=== PATIENT | female | born 1995 | race Caucasian/White ===

== ENCOUNTER 2016-04-12 13:17 | Emergency (ER) | payer OTHER ==
[2016-04-12 14:02] VITALS: TEMP 98.7
--- NOTE | 2016-04-12 16:46 | ED ---
Chest Pain HPI - General Chief Complaint: Chest Pain Stated Complaint: Chest Pain Time Seen by Provider: 04/12/16 15:56 Source: patient, RN notes reviewed Mode of arrival: ambulatory - History of Present Illness Initial Comments: Patient is a 20-year-old female emergency room for evaluation of chest pain. Patient states she began having chest pain about 3 days ago. Patient states she went to her care provider 3 days ago and she received blood work, EKG and ordered a Holter monitor. Patient states blood work was normal. Patient states EKG was normal. Patient states that the Holter monitor will be done in about an hour. Patient states that she still continued to have chest pain. Patient states the pain is sharp. Patient states pain is worsened takes a deep breath. Patient denies any recent falls, trauma or heavy lifting. Patient states and taking Tylenol with no relief of symptoms. Patient denies shortness of breath. Patient denies nausea or vomiting. Patient denies headache or dizziness. - Related Data Home Medications Medication Instructions Recorded Confirmed Acetaminophen Tab [Tylenol Tab] 500 - 1,000 mg PO Q6HR PRN 04/12/16 04/12/16 Norgestimate-Ethinyl Estradiol 1 tab PO HS 04/12/16 04/12/16 [Tri-Sprintec Tablet] Sertraline [Zoloft] 25 mg PO HS 04/12/16 04/12/16 Allergies Allergy/AdvReac Type Severity Reaction Status Date / Time No Known Allergies Allergy Verified 04/12/16 16:25 Review of Systems ROS Statement: Those systems with pertinent positive or pertinent negative responses have been documented in the HPI. ROS Other: All systems not noted in ROS Statement are negative. EKG Findings - EKG Comments: EKG Findings:: Normal sinus rhythm with sinus arrhythmia, ventricular rate 74 bpm, AZ interval 152 ms, QRS duration 84 ms, QT/QTc is 356/395 ms Past Medical History Additional Past Medical History / Comment(s): one kidney History of Any Multi-Drug Resistant Organisms: None Reported Past Surgical History: Tonsillectomy Additional Past Surgical History / Comment(s): kidney removed as an Past Psychological History: Depression Smoking Status: Never smoker Past Alcohol Use History: None Reported Past Drug Use History: None Reported General Exam - General Exam Comments Initial Comments: Sitting in exam room in no acute distress. General appearance: alert, in no apparent distress Head exam: Present: atraumatic, normocephalic, normal inspection Eye exam: Present: normal appearance ENT exam: Present: normal exam Neck exam: Present: normal inspection Respiratory exam: Present: normal lung sounds bilaterally. Absent: respiratory distress Cardiovascular Exam: Present: regular rate, normal rhythm, normal heart sounds Extremities exam: Present: normal inspection Back exam: Present: normal inspection Neurological exam: Present: alert, oriented X3, CN II-XII intact, normal gait Psychiatric exam: Present: normal affect, normal mood Skin exam: Present: warm, dry, intact, normal color. Absent: rash Course Vital Signs 04/12/16 04/12/16 13:59 18:07 Temperature 98.7 F Pulse Rate 84 78 Respiratory 18 16 Rate Blood Pressure 133/62 130/74 O2 Sat by Pulse 99 96 Oximetry [facility] Patient is a 20-year-old female presents emergency room for evaluation of chest pain. Patient is currently being evaluated by Holter monitor. EKG showed no acute findings. Chest x-ray showed no acute findings. Patient is alert he followed up with her primary care provider received blood work which showed no acute findings. Patient denies any worsening symptoms since she was seen by her primary care provider 3 days ago. No further workup is necessary at this time. Advised patient to follow-up with her primary care provider regarding Holter monitor results. Patient states she understands everything that was discussed with her. Return parameters discussed. Case discussed with Dr. Guzman. Disposition Clinical Impression: Pleuritic chest pain Disposition: HOME SELF-CARE Condition: Good Instructions: Pleurisy (ED) Additional Instructions: Take Tylenol or Motrin as needed for pain. Please follow up with primary care provider in 24-48 hours. If any new symptom arises, symptoms worsen or fever develops, return to ER as soon as possible. Referrals: Guerline Storm DO [Primary Care Provider] - 1-2 days Time of Disposition: 17:19
--- NOTE | 2016-04-12 17:03 | XR ---
EXAMINATION TYPE: XR chest 2V DATE OF EXAM: 04/12/2016 4:59 PM COMPARISON: None HISTORY: 20-year-old female with chest pain for 3 days TECHNIQUE: PA and lateral views FINDINGS: The cardiomediastinal silhouette, aorta, and pulmonary vasculature are within normal limits. Some str kenroy atelectasis at the right midlung. Otherwise, lungs and pleural spaces are clear. IMPRESSION: No acute cardiopulmonary process.
[2016-04-12] MEDS ORDERED: KETOROLAC 60 MG/2 ML VIAL IM STA (17:20)
[2016-04-12 18:09] VITALS: BP 130/74; PULSE 78; RESP 16
== END 2016-04-12 18:08 | disposition home or self-care (01) ==
LOC: EC 13:17
DX: R07.81 Pleurodynia (principal); Z79.899 Other long term (current) drug therapy; Z79.3 Long term (current) use of hormonal contraceptives; F32.9 Major depressive disorder, single episode, unspecified
CPT/HCPCS: 93005; 71020; 96372; 99285; J1885

== ENCOUNTER 2017-11-14 13:39 | Emergency (ER) | payer OTHER ==
[2017-11-14] MEDS ORDERED: KETOROLAC 30 MG/ML 1 ML VIAL IVP STA (13:50)
--- NOTE | 2017-11-14 13:52 | ED ---
General Adult HPI - General Chief complaint: Chest Pain Stated complaint: chest pain Time Seen by Provider: 11/14/17 13:40 Source: patient, RN notes reviewed Mode of arrival: ambulatory Limitations: no limitations - History of Present Illness Initial comments: This is a 22-year-old female presents emergency Department with a past history of being on control pills. Patient states she been having chest pain for a week and a half and is located in her upper left chest. Patient states when she breathes normally she does not feel it however when she takes a deep breath it hurts. Patient states she is also short of breath with this pain. Patient denies any recent fever chills or cough. Patient denies any swelling to her legs or calf tenderness. Patient denies any radiation of the pain. Patient denies any diaphoretic episodes. Patient denies any nausea. Patient denies any abdominal pain. Patient denies any lightheadedness dizziness or any near syncopal episode. - Related Data Home Medications Medication Instructions Recorded Confirmed Norgestimate-Ethinyl Estradiol 1 tab PO HS 04/12/16 11/14/17 [Tri-Sprintec Tablet] Sertraline [Zoloft] 25 mg PO HS 04/12/16 11/14/17 Allergies Allergy/AdvReac Type Severity Reaction Status Date / Time No Known Allergies Allergy Verified 11/14/17 13:53 Review of Systems ROS Statement: Those systems with pertinent positive or pertinent negative responses have been documented in the HPI. ROS Other: All systems not noted in ROS Statement are negative. Past Medical History Past Medical History: No Reported History Additional Past Medical History / Comment(s): one kidney History of Any Multi-Drug Resistant Organisms: None Reported Past Surgical History: Tonsillectomy Additional Past Surgical History / Comment(s): kidney removed as an Past Psychological History: Depression Smoking Status: Never smoker Past Alcohol Use History: None Reported Past Drug Use History: None Reported General Exam - General Exam Comments Initial Comments: GENERAL: Patient is well-developed and well-nourished. Patient is nontoxic and well- hydrated and is in no acute distress. ENT: Neck is soft and supple. No significant lymphadenopathy is noted. Oropharynx is clear. Moist mucous membranes. Neck has full range of motion without eliciting any pain. EYES: The sclera were anicteric and conjunctiva were pink and moist. Extraocular movements were intact and pupils were equal round and reactive to light. Eyelids were unremarkable. PULMONARY: Unlabored respirations. Good breath sounds bilaterally. No audible rales rhonchi or wheezing was noted. CARDIOVASCULAR: There is a regular rate and rhythm without any murmurs gallops or rubs. Patient does not appear to be reproducible ABDOMEN: Soft and nontender with normal bowel sounds. No palpable organomegaly was noted. There is no palpable pulsatile mass. SKIN: Skin is clear with no lesions or rashes and otherwise unremarkable. NEUROLOGIC: Patient is alert and oriented x3. Cranial nerves II through XII are grossly intact. Motor and sensory are also intact. Normal speech, volume and content. Symmetrical smile. MUSCULOSKELETAL: Normal extremities with adequate strength and full range of motion. No lower extremity swelling or edema. No calf tenderness. LYMPHATICS: No significant lymphadenopathy is noted PSYCHIATRIC: Normal psychiatric evaluation. Normal interpersonal interactions appears functionally intact in deals appropriately with others. No signs of depression. No signs of anxiety. Limitations: no limitations Course Vital Signs 11/14/17 13:41 Temperature 98.2 F Pulse Rate 93 Respiratory 18 Rate Blood Pressure 131/81 O2 Sat by Pulse 99 Oximetry Medical Decision Making - Medical Decision Making EKG shows normal sinus rhythm at 74 bpm DC interval 152 QRS is 84 QT interval 358 QTC is 397 patient's EKG shows no ST segment elevation or depression or T wave abnormalities are noted Chest x-ray shows no acute abnormality - Lab Data Result diagrams: 11/14/17 14:12 11/14/17 14:12 Lab Results 11/14/17 11/14/17 11/14/17 Range/Units 14:12 14:12 14:12 WBC 8.8 (3.8-10.6) k/uL RBC 4.65 (3.80-5.40) m/uL Hgb 13.3 (11.4-16.0) gm/dL Hct 41.8 (34.0-46.0) % MCV 89.9 (80.0-100.0) fL MCH 28.6 (25.0-35.0) pg MCHC 31.8 (31.0-37.0) g/dL RDW 12.7 (11.5-15.5) % Plt Count 350 (150-450) k/uL Neutrophils % 61 % Lymphocytes % 31 % Monocytes % 6 % Eosinophils % 1 % Basophils % 0 % Neutrophils # 5.3 (1.3-7.7) k/uL Lymphocytes # 2.7 (1.0-4.8) k/uL Monocytes # 0.5 (0-1.0) k/uL Eosinophils # 0.1 (0-0.7) k/uL Basophils # 0.0 (0-0.2) k/uL PT (9.0-12.0) sec INR (<1.2) APTT (22.0-30.0) sec D-Dimer (<0.60) mg/L FEU Sodium 139 (137-145) mmol/L Potassium 4.4 (3.5-5.1) mmol/L Chloride 107 (98-107) mmol/L Carbon Dioxide 22 (22-30) mmol/L Anion Gap 10 mmol/L BUN 11 (7-17) mg/dL Creatinine 0.70 (0.52-1.04) mg/dL Est GFR (CKD-EPI)AfAm >90 (>60 ml/min/1.73 sqM) Est GFR (CKD-EPI)NonAf >90 (>60 ml/min/1.73 sqM) Glucose 100 H (74-99) mg/dL Calcium 10.0 (8.4-10.2) mg/dL Magnesium 2.0 (1.6-2.3) mg/dL Total Bilirubin 0.4 (0.2-1.3) mg/dL AST 30 (14-36) U/L ALT 33 (9-52) U/L Alkaline Phosphatase 83 (38-126) U/L Total Creatine Kinase 84 (30-135) U/L CK-MB (CK-2) 0.3 (0.0-2.4) ng/mL CK-MB (CK-2) Rel Index 0.4 Troponin I <0.012 (0.000-0.034) ng/mL Total Protein 7.6 (6.3-8.2) g/dL Albumin 4.5 (3.5-5.0) g/dL 11/14/17 Range/Units 14:12 WBC (3.8-10.6) k/uL RBC (3.80-5.40) m/uL Hgb (11.4-16.0) gm/dL Hct (34.0-46.0) % MCV (80.0-100.0) fL MCH (25.0-35.0) pg MCHC (31.0-37.0) g/dL RDW (11.5-15.5) % Plt Count (150-450) k/uL Neutrophils % % Lymphocytes % % Monocytes % % Eosinophils % % Basophils % % Neutrophils # (1.3-7.7) k/uL Lymphocytes # (1.0-4.8) k/uL Monocytes # (0-1.0) k/uL Eosinophils # (0-0.7) k/uL Basophils # (0-0.2) k/uL PT 9.9 (9.0-12.0) sec INR 1.0 (<1.2) APTT 24.3 (22.0-30.0) sec D-Dimer 0.33 (<0.60) mg/L FEU Sodium (137-145) mmol/L Potassium (3.5-5.1) mmol/L Chloride (98-107) mmol/L Carbon Dioxide (22-30) mmol/L Anion Gap mmol/L BUN (7-17) mg/dL Creatinine (0.52-1.04) mg/dL Est GFR (CKD-EPI)AfAm (>60 ml/min/1.73 sqM) Est GFR (CKD-EPI)NonAf (>60 ml/min/1.73 sqM) Glucose (74-99) mg/dL Calcium (8.4-10.2) mg/dL Magnesium (1.6-2.3) mg/dL Total Bilirubin (0.2-1.3) mg/dL AST (14-36) U/L ALT (9-52) U/L Alkaline Phosphatase (38-126) U/L Total Creatine Kinase (30-135) U/L CK-MB (CK-2) (0.0-2.4) ng/mL CK-MB (CK-2) Rel Index Troponin I (0.000-0.034) ng/mL Total Protein (6.3-8.2) g/dL Albumin (3.5-5.0) g/dL Disposition Clinical Impression: Pleurisy Disposition: HOME SELF-CARE Condition: Good Instructions: Pleurisy (ED) Is patient prescribed a controlled substance at d/c from ED?: No Referrals: Guerline Storm DO [Primary Care Provider] - 1-2 days Time of Disposition: 15:10
[2017-11-14 14:41] LABS: Basophils % (A) 0 %; Eosinophils # (A) 0.1 k/uL (0-0.7); Eosinophils % (A) 1 %; HCT 41.8 % (34.0-46.0); HGB 13.3 gm/dL (11.4-16.0); Lymphocytes # (A) 2.7 k/uL (1.0-4.8); Lymphocytes % (A) 31 %; MCH 28.6 pg (25.0-35.0); MCHC 31.8 g/dL (31.0-37.0); MCV 89.9 fL (80.0-100.0); Mean Platelet Volume 6.1; Monocytes # (A) 0.5 k/uL (0-1.0); Monocytes % (A) 6 %; Neutrophils # (A) 5.3 k/uL (1.3-7.7); Neutrophils % (A) 61 %; Platelet Count 350 k/uL (150-450); RBC 4.65 m/uL (3.80-5.40); RDW 12.7 % (11.5-15.5); WBC 8.8 k/uL (3.8-10.6)
[2017-11-14 14:44] LABS: ALT 33 U/L (9-52); AST 30 U/L (14-36); Albumin 4.5 g/dL (3.5-5.0); Alkaline Phosphatase 83 U/L (38-126); Anion Gap 10 mmol/L; Blood Urea Nitrogen 11 mg/dL (7-17); Carbon Dioxide 22 mmol/L (22-30); Chloride 107 mmol/L (98-107); Glucose 100 mg/dL (74-99); Potassium 4.4 mmol/L (3.5-5.1); Sodium 139 mmol/L (137-145); Total Bilirubin 0.4 mg/dL (0.2-1.3); Total Protein 7.6 g/dL (6.3-8.2)
[2017-11-14 14:45] LABS: D-Dimer 0.33 mg/L FEU (<0.60); Partial Thromboplastin Time 24.3 sec (22.0-30.0); Prothrombin Time 9.9 sec (9.0-12.0)
--- NOTE | 2017-11-14 14:45 | XR ---
EXAMINATION TYPE: XR chest 2V DATE OF EXAM: 11/14/2017 COMPARISON: 04/12/2016 INDICATION: Chest pain for 11 days TECHNIQUE: Frontal and lateral views of the chest are obtained. FINDINGS: The heart size is normal. The pulmonary vasculature is normal. The lungs are clear. Scoliosis lower thoracic spine. IMPRESSION: 1. No acute pulmonary process.
[2017-11-14 14:50] LABS: Creatine Kinase 84 U/L (30-135)
[2017-11-14 15:03] LABS: Creatine Kinase MB 0.3 ng/mL (0.0-2.4); Troponin I <0.012 ng/mL (0.000-0.034)
[2017-11-14 15:33] VITALS: BP 136/53; PULSE 59; RESP 17; TEMP 97.9
== END 2017-11-14 15:20 | disposition home or self-care (01) ==
LOC: EC 13:39
DX: R09.1 Pleurisy (principal); R07.9 Chest pain, unspecified; R06.02 Shortness of breath; F32.9 Major depressive disorder, single episode, unspecified; Z79.3 Long term (current) use of hormonal contraceptives; Z79.899 Other long term (current) drug therapy
CPT/HCPCS: 36415; 93005; 85379; 80053; 82550; 82553; 83735; 84484; 85025; 85610; 85730; 71046; 99285; 96374; J1885

== ENCOUNTER → 2019-08-19 | Outpatient (CLI) | payer BC ==
[2019-08-19 12:48] LABS: HCT 41.2 % (34.0-46.0); HGB 13.1 gm/dL (11.4-16.0); MCH 28.9 pg (25.0-35.0); MCHC 31.7 g/dL (31.0-37.0); MCV 91.1 fL (80.0-100.0); Mean Platelet Volume 6.9; Platelet Count 263 k/uL (150-450); RBC 4.53 m/uL (3.80-5.40); RDW 12.6 % (11.5-15.5); WBC 12.9 k/uL (3.8-10.6)
[2019-08-19 20:29] LABS: Non-African American GFR(CKD) 135.5 (60.0-200.0)
[2019-08-19 20:31] LABS: Hepatitis B Surface Antigen Non-Reactive (Non-Reactive)
== END | disposition home or self-care (01) ==
LOC: LABWHC1 11:31
PROVIDERS: ATTEND Obstetrics & Gynecology
DX: Z34.01 Encounter for supervision of normal first pregnancy, first trimester (principal)
CPT/HCPCS: 36415; 82565; 82947; 85027; 86762; 86780; 86850; 86900; 86901; 87340

== ENCOUNTER 2019-11-18 16:47 | Observation (INO) | payer BC ==
[2019-11-18 17:51] VITALS: RESP 16
[2019-11-18 18:38] LABS: Appearance,Urine Clear (Clear); Bilirubin,Urine Negative (Negative); Blood,Urine Negative (Negative); Color,Urine Yellow; Glucose,Urine (UA) 4+ (Negative); Ketones,Urine 1+ (Negative); Leukocyte Esterase,Urine Negative (Negative); Mucus,Urine Occasional /hpf; Nitrite,Urine Negative (Negative); PH, Urine 5.5 (5.0-8.0); Protein,Urine 1+ (Negative); RBC,Urine 1 /hpf (0-5); Specific Gravity,Urine 1.032 (1.001-1.035); Squamous Epithelial Cell,Urine 1 /hpf (0-4); Urobilinogen,Urine <2.0 mg/dL (<2.0); WBC,Urine 1 /hpf (0-5)
[2019-11-18 18:53] LABS: Glucose,Whole Blood 190 mg/dL (75-99)
--- NOTE | 2019-11-18 19:39 | P.HPOB ---
History of Present Illness H&P Date: 11/18/19 Chief Complaint: Poorly controlled gestational diabetes Patient is a 24 old at 26 weeks gestation who arrives to labor and delivery complaining of abdominal cramping and back pain. Since she's been here resting the pain has completely subsided. There were no contractions noted on the monitor and a reassuring tracing is noted. She was digitally examined and was closed thick and high and therefore the fFn was discarded. Incidental finding was that her urinalysis showed 4+ glucose. Therefore a One Touch glucose screen was done and this was 3-1/2 hours postprandial and it was 191. She relates that she went there and had steak in a salad. She had failed a 1 hour Glucola screen recently as well. The is predominantly, complicated by the fetus having an omphalocele and fluid on the brain. She has been referred to the [facility] for her related complaints. However, she is not have an appointment for about 2 weeks with them and they have not addressed her gestational diabetes at all. She relates that she was told to check her sugars 1 or 2 times a week and she was using her mother's glucometer which I am curious as to whether is accurate are not as her blood glucose she relates has never been as high as it was today. Have ordered a hemoglobin A1c, CMP and CBC to reassess this aspect of the make sure there is no other findings. She has a past medical history of a singular kidney so we are going to verify urine creatinine are showing normal function at this time. Her past medical history is also, complicated by hearing deficit. Past surgical history is significant for tonsils and adenoids ALLERGIES none social history none family history is significant for diabetes mellitus On physical exam heart is regular, lungs are clear, extremities are without pain. Abdomen is soft there are no contractions on the monitor and after her resting her pain has completely subsided. Assessment intrauterine with gestational diabetes poorly controlled Plan observational care with changed to carbohydrate limited diabetic diet and consultation with diabetes education to at least try and get her started with correct diet will plan to have Dr. Bernard if possible order her a new glucometer and testing strips that she can begin testing her leukosis at home. Hemoglobin A1c has also been ordered to assess her long-term glucose numbers since we have no real baseline as to what her sugars have been over the last few weeks. It is also possible explained her that her diabetes may be pre-gestational as she has not had her testing done prior to her but that is something that is much more difficult to completely verify. Past Medical History Past Medical History: No Reported History Additional Past Medical History / Comment(s): one kidney History of Any Multi-Drug Resistant Organisms: None Reported Past Surgical History: Tonsillectomy Additional Past Surgical History / Comment(s): kidney removed as an Smoking Status: Never smoker Medications and Allergies Home Medications Medication Instructions Recorded Confirmed Type Norgestimate-Ethinyl Estradiol 1 tab PO HS 04/12/16 11/18/19 History [Tri-Sprintec Tablet] Sertraline [Zoloft] 25 mg PO HS 04/12/16 11/18/19 History Pnv,Calcium 72/Iron/Folic Acid 1 each PO DAILY 11/18/19 11/18/19 History [ Plus Tablet] Allergies Allergy/AdvReac Type Severity Reaction Status Date / Time No Known Allergies Allergy Verified 11/14/17 13:53 Exam Osteopathic Statement: *. No significant issues noted on an osteopathic structural exam other than those noted in the History and Physical/Consult. Vital Signs Temp Pulse Resp BP 11/18/19 17:27 97.5 F L 120 H 16 131/71 Intake and Output 11/18/19 11/18/19 11/18/19 06:59 14:59 22:59 Other: Weight 87.09 kg Results Abnormal Lab Results - Last 24 Hours (Table) 11/18/19 11/18/19 Range/Units 18:20 18:52 POC Glucose (mg/dL) 190 H (75-99) mg/dL Urine Protein 1+ H (Negative) Urine Glucose (UA) 4+ H (Negative) Urine Ketones 1+ H (Negative) Urine Mucus Occasional H (None) /hpf
[2019-11-18] MEDS ORDERED: PANTOPRAZOLE 40 MG TABLET PO STA (19:40)
[2019-11-18] MEDS ORDERED: SERTRALINE 50 MG TAB PO SCH (19:45)
[2019-11-18 20:25] LABS: Basophils % (A) 0 %; Eosinophils # (A) 0.1 k/uL (0-0.7); Eosinophils % (A) 1 %; HGB 11.1 gm/dL (11.4-16.0); Lymphocytes # (A) 1.8 k/uL (1.0-4.8); Lymphocytes % (A) 13 %; MCH 29.9 pg (25.0-35.0); MCHC 31.9 g/dL (31.0-37.0); MCV 93.9 fL (80.0-100.0); Monocytes # (A) 0.8 k/uL (0-1.0); Monocytes % (A) 5 %; Neutrophils # (A) 11.3 k/uL (1.3-7.7); Neutrophils % (A) 79 %; Platelet Count 284 k/uL (150-450); RBC 3.72 m/uL (3.80-5.40); RDW 13.5 % (11.5-15.5); WBC 14.3 k/uL (3.8-10.6)
[2019-11-18 20:36] LABS: ALT 16 U/L (4-34); AST 21 U/L (14-36); African American GFR (CKD) >90 (>60 ml/min/1.73 sqM); Albumin 3.2 g/dL (3.5-5.0); Alkaline Phosphatase 122 U/L (38-126); Anion Gap 5 mmol/L; Blood Urea Nitrogen 7 mg/dL (7-17); Carbon Dioxide 24 mmol/L (22-30); Chloride 103 mmol/L (98-107); Glucose 119 mg/dL (74-99); Non-African American GFR(CKD) >90 (>60 ml/min/1.73 sqM); Potassium 3.6 mmol/L (3.5-5.1); Sodium 132 mmol/L (137-145); Total Bilirubin 0.2 mg/dL (0.2-1.3); Total Protein 6.1 g/dL (6.3-8.2)
[2019-11-18 22:42] LABS: Glucose,Whole Blood 132 mg/dL (75-99)
[2019-11-19] MEDS: INSULIN ASPART (NovoLOG) 100 UNIT/ML VIAL SQ SCH ×2 (01:49→13:02)
[2019-11-19 05:17] LABS: Hemoglobin A1C 5.9 % (4.0-6.0)
[2019-11-19 08:10] LABS: Glucose,Whole Blood 110 mg/dL (75-99)
[2019-11-19 08:13] VITALS: BP 129/68; PULSE 111; TEMP 98.3
--- NOTE | 2019-11-19 12:23 | P.DS ---
Providers Date of admission: 11/18/19 19:19 Expected date of discharge: 11/19/19 Attending physician: Seda Bernard Primary care physician: Stated None - Discharge Diagnosis(es) (1) Gestational diabetes Current Visit: Yes Status: Acute Hospital Course: patient presented complaining of contractions at 27 weeks. Her cervix was closed and the contractions stopped on her own with some IV fluids. Her blood sugar was 191 on presentation and she does not have an appointment with them until 2 weeks out. She was kept for diabetic education and to ensure that her blood sugars were not completely out of control. Her fasting blood sugar this morning was 110. It was explained to her that fasting sugars should be in her 95 and pO2 her postprandial should be under 120. she now has nausea the appropriate diet, and how to take her blood sugars. She knows that diet and exercise can help with blood sugars but she may need medication. She's currently follow her blood sugars over the next 2 weeks in follow-up with [facility] as she is transferring care there due to the omphalocele and the fetus. Plan - Discharge Summary New Discharge Prescriptions: No Action Sertraline [Zoloft] 25 mg PO HS Norgestimate-Ethinyl Estradiol [Tri-Sprintec Tablet] 1 tab PO HS Pnv,Calcium 72/Iron/Folic Acid [ Plus Tablet] 1 each PO DAILY Discharge Medication List Norgestimate-Ethinyl Estradiol [Tri-Sprintec Tablet] 1 tab PO HS 04/12/16 [History] Sertraline [Zoloft] 25 mg PO HS 04/12/16 [History] Pnv,Calcium 72/Iron/Folic Acid [ Plus Tablet] 1 each PO DAILY 11/18/19 [History]
[2019-11-19 12:51] LABS: Glucose,Whole Blood 95 mg/dL (75-99)
[2019-11-19 14:22] VITALS: BMI 35.1
[2019-11-19 15:35] LABS: Glucose,Whole Blood 102 mg/dL (75-99)
== END 2019-11-19 15:48 | disposition home or self-care (01) ==
LOC: FBPOP 16:47 → 4FBP 19:19
PROVIDERS: ADMIT Obstetrics & Gynecology; ATTEND Obstetrics & Gynecology
DX: O24.419 Gestational diabetes mellitus in pregnancy, unspecified control (principal); O60.02 Preterm labor without delivery, second trimester; Z3A.27 27 weeks gestation of pregnancy; H91.90 Unspecified hearing loss, unspecified ear; Z79.899 Other long term (current) drug therapy; Z90.5 Acquired absence of kidney; Z83.3 Family history of diabetes mellitus
CPT/HCPCS: 99213; 80053; 85025; 81001; 83036; G0378

== ENCOUNTER 2020-01-19 01:39 | Outpatient (CLI) | payer BC ==
[2020-01-19 02:29] VITALS: BP 134/68; PULSE 120; RESP 14; TEMP 96.7
--- NOTE | 2020-01-19 12:08 | P.MSEPDOC ---
Presenting Problems - Arrival Data Date of Arrival on Unit: 01/19/20 Time of Arrival on Unit: 01:39 Mode of Transport: Ambulatory - Complaint OB-Reason for Admission/Chief Complaint: Possible Onset of Labor, Rule Out PROM Comment: pt c/o light pink blood noted when wiping after using the bathroom, contractions for the past 2 days, and being moist/wet for the past 2 days Medical History - Information : 1 Para: 0 Term: 0 : 0 Abortions: Spontaneous or Elective: 0 Number of Living Children: 0 - Gestational Age Gestational Age by RAMANA (wks/days): 36 Weeks and 3 Days - History Complications: GDM Comment: has an omphalocele, pt has a bicornate uterus Review of Systems - Review of Systems Constitutional: No problems Breast: No problems ENT: No problems Cardiovascular: No problems Respiratory: No problems Gastrointestinal: No problems Genitourinary: No problems Musculoskeletal: No problems Neurological: No problems Skin: No problems Vital Signs - Temperature Temperature: 96.7 F Temperature Source: Oral - Pulse Right Pulse Rate: 120 Pulse Assessment Method: Automatic Cuff - Respirations Respiratory Rate: 14 Oxygen Delivery Method: Room Air O2 Sat by Pulse Oximetry: 100 - Blood Pressure Right Arm Blood Pressure: 134/68 Blood Pressure Mean: 90 Blood Pressure Source: Automatic Cuff Medical Screen Scoring (Pre) - Cervical Exam Dilation: 1-3 cm = 1 Membranes: Intact - Uterine Contractions Frequency: > 5 minutes apart = 1 - Maternal Vital Signs Maternal Temperature: N/A Maternal Blood Pressure: N/A Signs of Preeclampsia: N/A Maternal Respirations: N/A - Maternal Trauma Maternal Trauma: N/A - Assessment - Baby A Baseline FHR: 140 Heart Rate - NICHD Category: Category I (Normal) = 0 NST: Reactive - Total Score - Baby A Total Score - Baby A: 2 - Total Score - Baby B Total Score - Baby B: 2 - Total Score - Baby C Total Score - Baby C: 2 - Level of Risk - Baby A Level of Risk - Baby A: Low (0-5) - Level of Risk - Baby B Level of Risk - Baby B: Low (0-5) - Level of Risk - Baby C Level of Risk - Baby C: Low (0-5) Physician Notification (Pre) - Physician Notified Physician Notified Date: 01/19/20 Physician Notified Time: 01:10 New Order Received: Yes - Notification Comment Comment: july d/c pt home after reactive NST, educate pt on importance of going to [facility] if pt believes she is in labor Disposition - Disposition OB Disposition: Discharge to home Discharge Date: 01/19/20 Discharge Time: 01:30 I agree with the RN Medical Screening Exam: Yes Risk & Benefit of care provided described in d/c instruction: Yes Diagnosis: FALSE LABOR BEFORE 37 COMPLETED WEEKS OF GEST, THIRD TRI
== END 2020-01-19 02:30 | disposition home or self-care (01) ==
LOC: FBPOP 01:39
PROVIDERS: ATTEND Obstetrics & Gynecology
DX: O47.03 False labor before 37 completed weeks of gestation, third trimester (principal); Z3A.36 36 weeks gestation of pregnancy
CPT/HCPCS: 59025; 99213

== ENCOUNTER → 2020-01-20 | Outpatient (CLI) | payer BC ==
[2020-01-20 18:12] VITALS: BP 129/74; PULSE 104; RESP 16; TEMP 97.2
--- NOTE | 2020-02-04 08:18 | P.MSEPDOC ---
Presenting Problems - Arrival Data Date of Arrival on Unit: 01/20/20 Time of Arrival on Unit: 16:29 Mode of Transport: Ambulatory - Complaint OB-Reason for Admission/Chief Complaint: NST Comment: non reactive nst in office. non reactive nst here but having contx . postive oct. contx 4 in 20 minutes, no increases in fhr but no decreases in fhr. moderate varitability, pt scheduled c/s at [facility] patient ops to go to [facility] per car due to contx, and need to deliver there. Medical History - Information : 1 Para: 0 Term: 0 : 0 Abortions: Spontaneous or Elective: 0 Number of Living Children: 0 - Gestational Age Gestational Age by RAMANA (wks/days): 36 Weeks and 4 Days - History Complications: Other Comment: see . [facility] Review of Systems - Review of Systems Constitutional: No problems Breast: No problems ENT: No problems Cardiovascular: No problems Respiratory: No problems Gastrointestinal: No problems Genitourinary: No problems Musculoskeletal: No problems Neurological: No problems Skin: No problems Vital Signs - Temperature Temperature: 97.2 F Temperature Source: Temporal Artery Scan - Pulse Apical Pulse Rate: 104 Pulse Assessment Method: Auscultation - Respirations Respiratory Rate: 16 Oxygen Delivery Method: Room Air O2 Sat by Pulse Oximetry: 99 - Blood Pressure Right Arm Blood Pressure: 129/74 Blood Pressure Mean: 92 Blood Pressure Source: Automatic Cuff Medical Screen Scoring (Pre) - Cervical Exam Dilation: Exam Deferred Effacement: Exam Deferred Membranes: Intact - Uterine Contractions Frequency: > or = 36 weeks =2 Duration: N/A Intensity: N/A - Maternal Vital Signs Maternal Temperature: N/A Maternal Blood Pressure: N/A Signs of Preeclampsia: N/A Maternal Respirations: N/A - Maternal Trauma Maternal Trauma: N/A - Assessment - Baby A Baseline FHR: 140 Heart Rate - NICHD Category: Category II (Indeterminate) = 3 NST: Non-reactive = 3 Position: N/A Station: N/A - Total Score - Baby A Total Score - Baby A: 8 - Total Score - Baby B Total Score - Baby B: 2 - Total Score - Baby C Total Score - Baby C: 2 - Level of Risk - Baby A Level of Risk - Baby A: Medium (6-9) - Level of Risk - Baby B Level of Risk - Baby B: Low (0-5) - Level of Risk - Baby C Level of Risk - Baby C: Low (0-5) Physician Notification (Pre) - Physician Notified Physician Notified Date: 01/20/20 Physician Notified Time: 17:20 New Order Received: Yes (pt to go directly to [facility] for evaluation of delivery) - Notification Comment Comment: pt and mother want to go to [facility] for planned delivery of baby. positive oct due to 4 contx in 20 minutes no decelerations seen. offered biophysical profile [facility] declined. " just wanted to get headed to [facility]. contacting in route. Disposition - Disposition OB Disposition: Discharge to home Transferred to:: [facility] per car Discharge Date: 01/20/20 Discharge Time: 17:40 I agree with the RN Medical Screening Exam: Yes Risk & Benefit of care provided described in d/c instruction: Yes Diagnosis: OTHER CONGENITAL MALFORMATIONS OF ABDOMINAL WALL
== END | disposition home or self-care (01) ==
LOC: FBPOP 16:29
PROVIDERS: ATTEND Obstetrics & Gynecology
DX: O99.891 Other specified diseases and conditions complicating pregnancy (principal); Q79.59 Other congenital malformations of abdominal wall; Z3A.36 36 weeks gestation of pregnancy
CPT/HCPCS: 59025; 99213

== ENCOUNTER 2020-04-06 03:04 | Emergency (ER) | payer BC, OTHER ==
[2020-04-06 03:12] VITALS: TEMP 98.4
[2020-04-06] MEDS ORDERED: SODIUM CHLORIDE 0.9% 1,000 ML IV STA (03:36)
--- NOTE | 2020-04-06 03:45 | ED ---
Chest Pain HPI - General Chief Complaint: Chest Pain Stated Complaint: chest feels heavy Time Seen by Provider: 04/06/20 03:07 Source: patient, RN notes reviewed, old records reviewed Mode of arrival: ambulatory Limitations: no limitations - History of Present Illness Initial Comments: This is a 24-year-old female DF for evaluation patient resents today for evaluation regards to chest pain chest pain with she lays down woke her up from sleep tonight. Symptoms on and off for a month without going an ongoing therapy as an outpatient. Denies fevers denies any symptoms of anxiety but is short of breath here in the ER. No travel history no sick contacts patient otherwise is a nonsmoker with no significant medical history MD Complaint: chest pain -: month(s) Onset: during rest, during exertion Pain Location: substernal, left chest Pain Radiation: none Severity: moderate Severity scale (1-10): 4 Quality: tightness Consistency: constant Improves With: nothing Worsens With: exertion Context: recent surgery ( 1 month ago) Anginal Symptoms: dyspnea Other Symptoms: palpitations Treatments Prior to Arrival: none - Related Data Home Medications Medication Instructions Recorded Confirmed Sertraline [Zoloft] 50 mg PO HS 04/12/16 01/20/20 Pnv,Calcium 72/Iron/Folic Acid 1 each PO DAILY 11/18/19 01/20/20 [ Plus Tablet] Insulin Aspart [NovoLOG] 10 units SQ PCHS 01/19/20 01/20/20 Insulin Aspart [NovoLOG] 20 units SQ AC-BRKFST 01/19/20 01/20/20 Omeprazole [PriLOSEC] 20 mg PO DAILY 01/19/20 01/20/20 Insulin NPH Human Isophane 10 units SQ HS 01/20/20 01/20/20 [NovoLIN N] Insulin NPH Human Isophane 10 units SQ QAM 01/20/20 01/20/20 [NovoLIN N] Allergies Allergy/AdvReac Type Severity Reaction Status Date / Time No Known Allergies Allergy Verified 04/06/20 03:11 Review of Systems ROS Statement: Those systems with pertinent positive or pertinent negative responses have been documented in the HPI. ROS Other: All systems not noted in ROS Statement are negative. EKG Findings - EKG Comments: EKG Findings:: EKG sinus rhythm 63 TX 160 QRS 84 QTc 392 Past Medical History Past Medical History: No Reported History Additional Past Medical History / Comment(s): one kidney History of Any Multi-Drug Resistant Organisms: None Reported Past Surgical History: Tonsillectomy Additional Past Surgical History / Comment(s): kidney removed as an infant Past Psychological History: Anxiety, Depression Smoking Status: Never smoker Past Alcohol Use History: None Reported Past Drug Use History: None Reported - Past Family History Father Family Medical History: No Reported History General Exam Limitations: no limitations General appearance: alert, in no apparent distress Head exam: Present: atraumatic, normocephalic, normal inspection Eye exam: Present: normal appearance, PERRL, EOMI. Absent: scleral icterus, conjunctival injection, periorbital swelling ENT exam: Present: normal exam, mucous membranes moist Neck exam: Present: normal inspection. Absent: tenderness, meningismus, lymphadenopathy Respiratory exam: Present: normal lung sounds bilaterally. Absent: respiratory distress, wheezes, rales, rhonchi, stridor Cardiovascular Exam: Present: regular rate, normal rhythm, normal heart sounds. Absent: systolic murmur, diastolic murmur, rubs, gallop, clicks GI/Abdominal exam: Present: soft, normal bowel sounds. Absent: distended, tenderness, guarding, rebound, rigid Extremities exam: Present: normal inspection, full ROM, normal capillary refill. Absent: tenderness, pedal edema, joint swelling, calf tenderness Back exam: Present: normal inspection Neurological exam: Present: alert, oriented X3, CN II-XII intact Psychiatric exam: Present: normal affect, normal mood Skin exam: Present: warm, dry, intact, normal color. Absent: rash Course Vital Signs 04/06/20 04/06/20 04/06/20 03:07 03:22 04:30 Temperature 98.4 F Pulse Rate 64 78 Respiratory 20 18 18 Rate Blood Pressure 124/84 125/78 O2 Sat by Pulse 98 98 Oximetry 04/06/20 05:56 Temperature Pulse Rate 86 Respiratory 16 Rate Blood Pressure 131/80 O2 Sat by Pulse 100 Oximetry - Reevaluation(s) Reevaluation #1: Medical record is reviewed Patient has adequate symptom control currently, symptoms improved Patient is feeling better Spoke patient regarding findings, questions answered Chest Pain MDM - MDM 24 female DEL with persistent chest pain, no acute cause found here in the ER. Patient will continue follow-up with primary care and likely cardiology Disposition Clinical Impression: Chest pain, Atypical chest pain Disposition: HOME SELF-CARE Condition: Good Instructions (If sedation given, give patient instructions): Chest Pain (ED) Is patient prescribed a controlled substance at d/c from ED?: No Referrals: Guerline Storm DO [Primary Care Provider] - 1-2 days
[2020-04-06 03:49] LABS: Basophils # (A) 0.1 k/uL (0-0.2); Basophils % (A) 1 %; Eosinophils # (A) 0.2 k/uL (0-0.7); Eosinophils % (A) 2 %; HCT 40.4 % (34.0-46.0); HGB 13.6 gm/dL (11.4-16.0); Lymphocytes # (A) 3.5 k/uL (1.0-4.8); Lymphocytes % (A) 32 %; MCHC 33.7 g/dL (31.0-37.0); MCV 86.1 fL (80.0-100.0); Mean Platelet Volume 6.2; Monocytes # (A) 0.6 k/uL (0-1.0); Monocytes % (A) 6 %; Neutrophils # (A) 6.2 k/uL (1.3-7.7); Neutrophils % (A) 57 %; Platelet Count 341 k/uL (150-450); RBC 4.69 m/uL (3.80-5.40); RDW 14.3 % (11.5-15.5); WBC 10.8 k/uL (3.8-10.6)
[2020-04-06 03:59] LABS: ALT 67 U/L (4-34); AST 51 U/L (14-36); African American GFR (CKD) >90 (>60 ml/min/1.73 sqM); Albumin 4.5 g/dL (3.5-5.0); Alkaline Phosphatase 163 U/L (38-126); Anion Gap 10 mmol/L; Blood Urea Nitrogen 15 mg/dL (7-17); Calcium 10.2 mg/dL (8.4-10.2); Carbon Dioxide 22 mmol/L (22-30); Chloride 105 mmol/L (98-107); Glucose 103 mg/dL (74-99); Lipase 219 U/L (23-300); Magnesium 1.8 mg/dL (1.6-2.3); Non-African American GFR(CKD) >90 (>60 ml/min/1.73 sqM); Potassium 4.2 mmol/L (3.5-5.1); Sodium 137 mmol/L (137-145); Total Bilirubin 0.3 mg/dL (0.2-1.3); Total Protein 7.8 g/dL (6.3-8.2)
[2020-04-06 04:08] LABS: D-Dimer 0.32 mg/L FEU (<0.60); INR 0.9 (<1.2); Partial Thromboplastin Time 23.5 sec (22.0-30.0); Prothrombin Time 9.6 sec (9.0-12.0)
[2020-04-06] MEDS ORDERED: methylPREDNISolone SOD SUCCI 125 MG/2 ML VIAL IV STA (04:14)
[2020-04-06] MEDS ORDERED: diphenhydrAMINE 50 MG/ML 1 ML VIAL IVP STA (04:14)
[2020-04-06] MEDS ORDERED: FAMOTIDINE 20 MG/2 ML VIAL IV STA (04:14)
--- NOTE | 2020-04-06 04:58 | CT ---
EXAM: CT Angiography Chest With Intravenous Contrast CLINICAL HISTORY: ITS.REASON CT Reason: PE TECHNIQUE: Axial computed tomographic angiography images of the chest with intravenous contrast. CTDI is 20.97 mGy and DLP is 355.60 mGy-cm. This CT exam was performed using one or more of the following dose reduction techniques: automated exposure control, adjustment of the mA and/or kV according to patient size, and/or use of iterative reconstruction technique. MIP reconstructed images were created and reviewed. COMPARISON: No relevant prior studies available. FINDINGS: Pulmonary arteries: No filling defects. Aorta: No thoracic aortic aneurysm. Lungs: No mass. No consolidation. Pleural space: No pneumothorax. No effusion. Heart: No cardiomegaly. No pericardial effusion. Bones/joints: No acute fracture or dislocation. Soft tissues: Unremarkable. Lymph nodes: No enlarged lymph nodes. IMPRESSION: No acute intrathoracic findings.
[2020-04-06 05:57] VITALS: BP 131/80; PULSE 86; RESP 16
== END 2020-04-06 05:57 | disposition home or self-care (01) ==
LOC: EC 03:04
DX: R07.89 Other chest pain (principal); F41.9 Anxiety disorder, unspecified; F32.9 Major depressive disorder, single episode, unspecified; Z79.899 Other long term (current) drug therapy
CPT/HCPCS: 36415; 93005; 85379; 80053; 83690; 83735; 84484; 85025; 85610; 85730; 71275; 99285; 96374; 96375 ×2; 96361; J1200; J2930; Q9967

== ENCOUNTER 2024-03-22 06:36 | Outpatient (CLI) | payer BC ==
[2024-03-22 07:27] VITALS: BP 140/89; PULSE 90; RESP 16; TEMP 97.8
--- NOTE | 2024-04-14 11:31 | P.MSEPDOC ---
Presenting Problems - Arrival Data Date of Arrival on Unit: 03/22/24 Time of Arrival on Unit: 06:36 Mode of Transport: Ambulatory - Complaint OB-Reason for Admission/Chief Complaint: Rule Out SROM Comment: Pt arrives to triage with complaints of possible SROM at approximately 2200 last night, states clear fluid. Medical History - Information : 2 Para: 1 Term: 1 : 0 Abortions: Spontaneous or Elective: 0 Number of Living Children: 1 - Gestational Age Gestational Age by RAMANA (wks/days): 36 Weeks and 0 Days - History Complications: GDM Review of Systems - Review of Systems Constitutional: No problems Breast: No problems ENT: No problems Cardiovascular: No problems Respiratory: No problems Gastrointestinal: No problems Genitourinary: No problems Musculoskeletal: No problems Neurological: No problems Skin: No problems Vital Signs - Temperature Temperature: 97.8 F Temperature Source: Temporal Artery Scan - Pulse Pulse Oximetery Pulse Rate: 90 Pulse Assessment Method: Pulse Oximetry - Respirations Respiratory Rate: 16 Oxygen Delivery Method: Room Air O2 Sat by Pulse Oximetry: 98 - Blood Pressure Right Arm Blood Pressure: 140/89 Blood Pressure Mean: 106 Blood Pressure Source: Automatic Cuff Medical Screen Scoring - Cervical Exam Dilation (cm): 0 Effacement (%): 50 Station: -3 Membranes: Intact - Uterine Contractions Frequency From (mins): 2 Frequency To (mins): 7 Duration From (seconds): 50 Duration To (seconds): 60 Intensity: Mild Resting: Soft to palpation - Assessment - Baby A Baseline FHR: 135 Heart Rate - NICHD Category: Category I (Normal) NST: Reactive Physician Notification - Physician Notified Physician Notified Date: 03/22/24 Physician Notified Time: 07:01 Physician: Irving Gaspar Order Received: Yes - Notification Comment Comment: RN spoke with Dr. Gaspar regarding triage pt c/o potential SROM last night at 2200. Reported vital signs, reactive NST, contx 2-7 minutes apart and pt rating pain 2-3/10, amnisure negative and cervix closed/thick/high. Orders received to discharge pt home. Maternal Triage Index - Maternal Triage Index Presenting for scheduled procedure w/no complaint: No - Stat/Priority 1 Stat Priority 1: No - Urgent/Priority 2 Urgent Priority 2: No - Prompt/Priority 3 Prompt Priority 3: Yes Criteria Met for Priority 3: c/o SROM 36 0/7 weeks Disposition - Disposition OB Disposition: Discharge to home, Written follow up instructions reviewed Discharge Date: 03/22/24 Discharge Time: 07:05 I agree with the RN Medical Screening Exam: Yes Physician's MSE Comment: Neither seen nor examined the patient. Case reviewed; plan agreed upon as documented in EMR&OBIX.: Yes Diagnosis: RELATED CONDITIONS, UNSPECIFIED, THIRD TRIMESTER
== END 2024-03-22 07:05 | disposition home or self-care (01) ==
LOC: FBPOP 06:36 → MERGE 06:36 → FBPOP 07:05
PROVIDERS: ATTEND Obstetrics & Gynecology
DX: O26.93 Pregnancy related conditions, unspecified, third trimester (principal); Z3A.36 36 weeks gestation of pregnancy
CPT/HCPCS: 59025; 84112; 99213

== ENCOUNTER 2024-04-12 01:19 | Inpatient (IN) | payer BC ==
[2024-04-12 02:35] LABS: Basophils % (A) 0 %; Eosinophils # (A) 0.1 k/uL (0-0.7); Eosinophils % (A) 1 %; HCT 33.5 % (34.0-46.0); HGB 11.1 gm/dL (11.4-16.0); Lymphocytes # (A) 2.1 k/uL (1.0-4.8); Lymphocytes % (A) 20 %; MCH 29.3 pg (25.0-35.0); MCHC 33.2 g/dL (31.0-37.0); MCV 88.3 fL (80.0-100.0); Mean Platelet Volume 7.3; Monocytes # (A) 0.7 k/uL (0-1.0); Monocytes % (A) 6 %; Neutrophils # (A) 7.5 k/uL (1.3-7.7); Neutrophils % (A) 71 %; Platelet Count 279 k/uL (150-450); RDW 14.6 % (11.5-15.5); WBC 10.5 k/uL (3.8-10.6)
[2024-04-12 02:47] LABS: Appearance,Urine Clear (Clear); Bilirubin,Urine Negative (Negative); Blood,Urine Negative (Negative); Color,Urine Colorless; Glucose,Urine (UA) Negative (Negative); Ketones,Urine Negative (Negative); Leukocyte Esterase,Urine Negative (Negative); Nitrite,Urine Negative (Negative); PH, Urine 5.5 (5.0-8.0); Protein,Urine Trace (Negative); Specific Gravity,Urine 1.014 (1.001-1.035); Urobilinogen,Urine <2.0 mg/dL (<2.0)
[2024-04-12 02:48] LABS: ALT 17 U/L (4-34); AST 25 U/L (14-36); African American GFR (CKD) >90 (>60 ml/min/1.73 sqM); Blood Urea Nitrogen 11 mg/dL (7-17); LDH 176 U/L (120-246); Magnesium 1.9 mg/dL (1.6-2.3); Non-African American GFR(CKD) >90 (>60 ml/min/1.73 sqM); Uric Acid 4.6 mg/dL (3.7-7.4)
[2024-04-12 02:49] LABS: Creatinine,Urine Random 73.8 mg/dL; Protein/Creatinine Ratio,Urine 0.528
[2024-04-12 03:19] LABS: INR 0.8 (<1.2); Partial Thromboplastin Time 21.9 sec (22.0-30.0); Prothrombin Time 9.4 sec (10.0-12.5)
[2024-04-12] MEDS: LACTATED RINGERS 1,000 ML IV ONE (03:30)
[2024-04-12] MEDS: LACTATED RINGERS 1,000 ML IV SCH ×2 (05:20→09:10)
[2024-04-12] MEDS: NALBUPHINE 10 MG/ML (10 ML MDV) IV PRN (06:41)
[2024-04-12] MEDS ORDERED: OXYTOCIN 10 UNIT/ML 1 ML VIAL IM PRN (07:15)
[2024-04-12] MEDS ORDERED: miSOPROStoL 200 MCG TAB PO PRN (07:15)
[2024-04-12] MEDS ORDERED: CARBOPROST TROMETHAMINE 250 MCG/ML 1 ML AMP IM PRN (07:15)
[2024-04-12] MEDS ORDERED: TRANEXAMIC 1,000 MG/100ML-NACL 1,000 MG in EMPTY BAG 1 BAG IV PRN (07:15)
[2024-04-12] MEDS ORDERED: METHYLERGONOVINE 0.2 MG/ML 1 ML AMP IM PRN (07:15)
[2024-04-12 07:28] LABS: Glucose,Whole Blood 92 mg/dL (70-110)
[2024-04-12] MEDS: CITRIC ACID-SODIUM CITRATE 15 ML CUP PO ONE (07:36)
[2024-04-12] MEDS ORDERED: KETOROLAC 15 MG/ML 1 ML VIAL ONE (07:55)
[2024-04-12] MEDS ORDERED: ONDANSETRON 4 MG/2 ML VIAL ONE (07:55)
[2024-04-12] MEDS ORDERED: MORPHINE SULFATE (PF) 0.3 MG/0.3 ML SYR ONE (07:55)
[2024-04-12] MEDS ORDERED: NALBUPHINE (ANES) 10 MG/ML - 1 ML AMP ONE (07:55)
--- NOTE | 2024-04-12 08:41 | P.HPOB ---
History of Present Illness H&P Date: 04/12/24 Chief Complaint: labor, previous 28-year-old G2, P1 presents at 39 weeks gestation complaining of severe contractions. She is rachel irregularly. heart tones are 135 with moderate variability and reactive. She was observed overnight and continued to have contractions that were extremely painful. She had a previous section and we will do repeat as well as tubal ligation. Review of Systems All systems: negative Constitutional: Denies chills, Denies fever Eyes: denies blurred vision, denies pain Ears, nose, mouth and throat: Denies headache, Denies sore throat Cardiovascular: Denies chest pain, Denies shortness of breath Respiratory: Denies cough Gastrointestinal: Denies abdominal pain, Denies diarrhea, Denies nausea, Denies vomiting Genitourinary: Denies dysuria, Denies hematuria Musculoskeletal: Denies myalgias Integumentary: Denies pruritus, Denies rash Neurological: Denies numbness, Denies weakness Psychiatric: Denies anxiety, Denies depression Endocrine: Denies fatigue, Denies weight change Past Medical History Past Medical History: No Reported History Additional Past Medical History / Comment(s): GDM History of Any Multi-Drug Resistant Organisms: None Reported Past Surgical History: Section Past Anesthesia/Blood Transfusion Reactions: No Reported Reaction Past Psychological History: No Psychological Hx Reported Smoking Status: Never smoker Past Drug Use History: None Reported Medications and Allergies Home Medications Medication Instructions Recorded Confirmed Type Vit No.179/Iron/Folic 1 each PO DAILY 03/22/24 03/22/24 History [ Tablet] Allergies Allergy/AdvReac Type Severity Reaction Status Date / Time No Known Allergies Allergy Verified 04/12/24 01:36 Exam Osteopathic Statement: *. No significant issues noted on an osteopathic structural exam other than those noted in the History and Physical/Consult. Vital Signs Temp Pulse Resp BP Pulse Ox 04/12/24 06:17 97.8 F 100 16 139/98 04/12/24 05:04 97.3 F L 64 18 156/79 99 Intake and Output 04/11/24 04/12/24 04/12/24 22:59 06:59 14:59 Other: # Voids 1 Weight 90.718 kg Heart: Regular rate and rhythm Lungs: Clear to auscultation bilaterally Abdomen: Soft, nontender Extremities: Negative Homans sign Results Result Diagrams: 04/12/24 02:15 04/12/24 02:15 Abnormal Lab Results - Last 24 Hours (Table) 04/12/24 04/12/24 04/12/24 Range/Units 01:50 02:15 02:15 Hgb 11.1 L (11.4-16.0) gm/dL Hct 33.5 L (34.0-46.0) % PT (10.0-12.5) sec APTT (22.0-30.0) sec Fibrinogen (200-500) mg/dL Creatinine 0.51 L (0.52-1.04) mg/dL Urine Protein Trace H (Negative) 04/12/24 Range/Units 02:15 Hgb (11.4-16.0) gm/dL Hct (34.0-46.0) % PT 9.4 L (10.0-12.5) sec APTT 21.9 L (22.0-30.0) sec Fibrinogen 614 H (200-500) mg/dL Creatinine (0.52-1.04) mg/dL Urine Protein (Negative) Assessment and Plan (1) Normal labor Current Visit: Yes Status: Acute Code(s): O80 - ENCOUNTER FOR FULL-TERM UNCOMPLICATED DELIVERY; Z37.9 - OUTCOME OF DELIVERY, UNSPECIFIED SNOMED Code( s): 98565642 (2) Previous section Current Visit: Yes Status: Acute Code(s): Z98.891 - HISTORY OF UTERINE SCAR FROM PREVIOUS SURGERY SNOMED Code(s): 612697290 (3) Family planning Current Visit: Yes Status: Acute Code(s): Z30.09 - ENCOUNTER FOR OT GENERAL CNSL AND ADVICE ON CONTRACEPTION SNOMED Code(s): 181835398 Plan: 1. Repeat low-transverse with tubal ligation
[2024-04-12] MEDS ORDERED: LANOLIN CREAM 1 GM TUBE TOPICAL PRN (08:44)
[2024-04-12] MEDS ORDERED: diphenhydrAMINE 50 MG CAP PO PRN (08:44)
[2024-04-12] MEDS ORDERED: METOCLOPRAMIDE 5 MG/ML 2 ML VIAL IVP PRN (08:44)
[2024-04-12] MEDS ORDERED: ZOLPIDEM 5 MG TAB PO PRN (08:44)
[2024-04-12] MEDS ORDERED: SIMETHICONE 80 MG CHEWABLE PO PRN (08:44)
[2024-04-12] MEDS ORDERED: NALOXONE 0.4 MG/ML 1 ML VIAL IV PRN (08:44)
[2024-04-12] MEDS ORDERED: diphenhydrAMINE 50 MG/ML 1 ML VIAL IVP PRN ×2 (08:44)
[2024-04-12] MEDS ORDERED: diphenhydrAMINE 25 MG CAP PO PRN (08:44)
--- NOTE | 2024-04-12 08:44 | P.OP ---
Date of Procedure: 04/12/24 Preoperative Diagnosis: 1. G2, P1 at 39 weeks 2. Normal labor 3. Family-planning Postoperative Diagnosis: Same Procedure(s) Performed: Repeat low-transverse with tubal ligation Anesthesia: spinal Surgeon: Seda Bernard Planograph Operator #1: Irving Gaspar Estimated Blood Loss (ml): 350 IV fluids (ml): 400 Urine output (ml): 100 Pathology: other (potion of bilateral fallopian tubes) Condition: stable Disposition: floor Operative Findings: Viable female, Apgars 9, 9, weight 7 pounds 7 ounces. Normal uterus tubes and ovaries Description of Procedure: Patient was taken to the operating room where spinal anesthesia was found be adequate. She was prepped and draped in normal sterile fashion in dorsal supine position with a leftward tilt. Pfannenstiel skin incision was made the scalpel and carried through to the underlying layer of fascia with the scalpel. Fascia was incised in midline and carried bilaterally with the Villegas scissors. The superior aspect of the fascial incision was grasped with [employer] clamps elevated and the underlying rectus muscles dissected off with the Villegas's. Attention was then turned to inferior aspect of same incision which in a similar fashion was grasped tented up and the underlying rectus muscles dissected off with the Villegas's. The rectus muscles were the midline and the peritoneum was identified tented up and entered sharply with the scalpel. The incision was extended superiorly and inferiorly with good visualization of the bladder. The bladder blade was inserted and the vesicouterine peritoneum was incised the Metzenbaums then carried bilaterally and bladder flap created digitally. A low transverse incision was then made on the uterus with the scalpel. This was carried bilaterally and digital manner. Infant's head delivered atraumatically, nose and mouth bulb suctioned, cord clamped and cut, infant handed off to waiting nurses. Apgars 9,9, weight 7 lbs. 7 oz. Placenta delivered manually, intact with three-vessel cord. The uterus is exteriorized and cleared of all clots and debris. The uterine incision was closed with 0 Vicryl in a running locked fashion. Both ovaries and tubes appeared normal. The right fallopian tube was grasped with a hemostat and window was made in the mesosalpinx with the Bovie the right fallopian tube was doubly ligated the segment was removed and pedicles were cauterized with the Bovie. The left fallopian tube was grasped with a hemostat and a window was made in the mesosalpinx with the Bovie. The left fallopian tube was doubly ligated and a segment was removed, pedicles were cauterized with the Bovie. The uterus was placed back into the abdomen. The fascia was reapproximated using 0 Vicryl in a running fashion. The subcutaneous tissues closed with 3-0 Vicryl running fashion. The skin was closed audie. Patient tolerated the procedure well, sponge and instrument counts were correct times 2 and she was taken to the recovery room in stable condition.
[2024-04-12] MEDS ORDERED: OXYTOCIN 30 UNITS/500 ML NS 30 UNIT in SALINE 1 500ML.BAG IV SCH (08:45)
[2024-04-12] MEDS ORDERED: ACETAMINOPHEN TAB 500 MG TAB PO SCH (09:00)
[2024-04-12] MEDS: ACETAMINOPHEN TAB 500 MG TAB PO SCH (12:02)
[2024-04-12] MEDS: MEASLES-MUMPS-RUBELLA VACC/PF 12,500 UNIT/0.5 ML VIAL SQ ONE (13:08)
[2024-04-12] MEDS: ONDANSETRON 4 MG/2 ML VIAL IVP PRN (14:41)
[2024-04-12] MEDS: KETOROLAC 15 MG/ML 1 ML VIAL IVP SCH (17:02)
[2024-04-12] MEDS: SENNOSIDES-DOCUSATE SODIUM 1 EACH TAB PO SCH (19:55)
[2024-04-13 07:09] LABS: Basophils % (A) 0 %; Eosinophils # (A) 0.1 k/uL (0-0.7); Eosinophils % (A) 1 %; HCT 29.2 % (34.0-46.0); HGB 9.7 gm/dL (11.4-16.0); Lymphocytes # (A) 1.5 k/uL (1.0-4.8); Lymphocytes % (A) 18 %; MCH 29.4 pg (25.0-35.0); MCHC 33.3 g/dL (31.0-37.0); MCV 88.4 fL (80.0-100.0); Mean Platelet Volume 7.7; Monocytes # (A) 0.6 k/uL (0-1.0); Monocytes % (A) 7 %; Neutrophils # (A) 6.2 k/uL (1.3-7.7); Neutrophils % (A) 73 %; Platelet Count 229 k/uL (150-450); RDW 15.2 % (11.5-15.5); WBC 8.5 k/uL (3.8-10.6)
[2024-04-13] MEDS: IBUPROFEN 800 MG TAB PO SCH (09:07)
--- NOTE | 2024-04-13 09:23 | P.PN ---
Progress Note - Text 04/13/23 834AM 28-year-old female status post with spinal Duramorph. Patient seen and evaluated for postop pain control, she has a VAS of 3, she had nausea which has resolved and pruritus is much better
--- NOTE | 2024-04-13 11:59 | P.PNOBGPC ---
Subjective - Subjective Patient reports: Reports appetite normal, Reports voiding normally, Reports pain well controlled, Reports ambulating normally Marcella: doing well, nursing well Objective - Vital Signs Latest vital signs: Vital Signs Temp Pulse Resp BP Pulse Ox 04/13/24 08:00 98.6 F 83 18 110/70 98 04/13/24 00:00 98.3 F 82 16 132/74 97 04/12/24 20:00 16 04/12/24 16:00 97.9 F 69 18 124/68 99 Intake and Output 04/12/24 04/13/24 04/13/24 22:59 06:59 14:59 Output Total 400 600 Balance -400 -600 Output: Urine 400 600 Uretheral (Lynn) 200 Other: # Voids 1 1 - Exam Extremities: Present: normal Abdomen: Present: normal appearance, soft. Absent: distention, tenderness Incision: Present: normal, dry, intact Uterus: Present: normal, firm (The uterine fundus is tonic and appropriately tender below the umbilicus.) - Labs Labs: Abnormal Lab Results - Last 24 Hours (Table) 04/13/24 Range/Units 05:56 RBC 3.30 L (3.80-5.40) m/uL Hgb 9.7 L (11.4-16.0) gm/dL Hct 29.2 L (34.0-46.0) % Assessment and Plan (1) Status post section Current Visit: Yes Status: Acute Code(s): Z98.891 - HISTORY OF UTERINE SCAR FROM PREVIOUS SURGERY SNOMED Code(s): 964721175 Plan: Continue routine and postoperative care. I have encouraged the patient ambulate in the hallways routinely. I would anticipate discharge home tomorrow pending no complications.
[2024-04-13] MEDS ORDERED: IBUPROFEN 800 MG TAB PO SCH (17:00)
[2024-04-14 08:13] VITALS: BP 130/77; PULSE 99; RESP 18; TEMP 98.7
--- NOTE | 2024-04-14 10:58 | P.DS ---
Providers Date of admission: 04/12/24 06:00 Expected date of discharge: 04/14/24 Attending physician: Seda Bernard Primary care physician: Stated None - Discharge Diagnosis(es) (1) Status post section Current Visit: Yes Status: Acute Hospital Course: The patient is a 28-year-old 2 para 1-0-0-1 admitted at 39-0/7 weeks. Her was essentially uncomplicated and group B strep status is negative. She presents in active labor with a history of a previous section and, given the diagnosis of labor, was taken to the operating room where she underwent repeat low-transverse section with intraoperative bilateral tubal ligation in an uncomplicated fashion. She was delivered of a viable 7 pound 7 ounce baby girl with Apgars of 9 at 1 minute and 9 at 5 minutes. Her and postoperative course was unremarkable with vital signs remaining stable and her temperature was afebrile throughout. She was deemed stable for discharge on and postoperative day #2 and was discharged home to follow-up in the office in 2 weeks for an incision check in 6 weeks routinely. Discharge instructions included calling for any significantly increased bleeding or foul-smelling lochia, significantly increased fever abdominal pain, perineal complaints, breast complaints, incisional complaints, or anything else that concerned her. She was additionally instructed to have nothing in the vagina for at least 6 weeks time to include intercourse and to abstain from any heavy lifting over the same period of time. She was last seen instructed to do no driving until off of all pain medications or 2 weeks time, whichever came first. She understood her instructions and agrees to follow-up as noted above. Discharge medications included continued vitamins as she has opted to breast. She was otherwise to use [id number] analgesic pain medications. She was provided a prescription for oxycodone 5 mg, 1-2 p.o. every 6 hours as needed pain, #20 dispensed with no refills. Maternal blood type is Rh+ and rubella status is immune. Discharge hemoglobin and hematocrit were 9.7 and 29.2 respectively. Procedures: #1. Repeat low-transverse section #2. Intraoperative bilateral tubal occlusion by modified [place] technique Patient Condition at Discharge: Stable Plan - Discharge Summary New Discharge Prescriptions: No Action Vit No.179/Iron/Folic [ Tablet] 1 each PO DAILY Discharge Medication List Vit No.179/Iron/Folic [ Tablet] 1 each PO DAILY 03/22/24 [History] Follow up Appointment(s)/Referral(s): Seda Bernard DO [Doctor of Osteopathic Medicine] - 2 Weeks Discharge Disposition: HOME SELF-CARE
== END 2024-04-14 11:48 | disposition home or self-care (01) | DRG 785 ==
LOC: FBPOP 01:19 → 4FBP 04:15 → OBSVTOIN 06:00 → MERGE 06:00
PROVIDERS: ADMIT Obstetrics & Gynecology; ATTEND Obstetrics & Gynecology
PROC: 3E0134Z Introduction of Serum, Toxoid and Vaccine into Subcutaneous Tissue, Percutaneous Approach (ICD-10-PCS; 2024-04-12)
PROC: 10D00Z1 Extraction of Products of Conception, Low, Open Approach (ICD-10-PCS; principal; 2024-04-12 08:00)
PROC: 0UB70ZZ Excision of Bilateral Fallopian Tubes, Open Approach (ICD-10-PCS; principal; 2024-04-12 08:00)
DX: O34.211 Maternal care for low transverse scar from previous cesarean delivery (principal); L29.9 Pruritus, unspecified; O99.73 Diseases of the skin and subcutaneous tissue complicating the puerperium; Z37.0 Single live birth; Z30.2 Encounter for sterilization; Z23 Encounter for immunization; Z3A.39 39 weeks gestation of pregnancy; Z79.899 Other long term (current) drug therapy; Z86.32 Personal history of gestational diabetes
CPT/HCPCS: 81003; 82565; 82570; 83615; 83735; 84156; 84450; 84460; 84520; 84550; 85025; 85384; 85610; 85730; 86850; 86900; 86901; 88302; 90707; 96360; 96361; 99213